=== PATIENT | male | born 1960 | race African-American/Black ===

== ENCOUNTER 2016-12-18 22:54 | Inpatient (IN) | payer MEDICAID ==
[~2016-12-18] VITALS: Ht 160 cm; Wt 71.7 kg
[~2016-12-18 22:54] MED LIST: COR12 PO; FURO40TA5 PO; KDUR10 PO; LIP40 PO; LISI10TA5 PO
[2016-12-18] MEDS ORDERED: ASPIRIN 81MG TABLET PO STA (23:22)
[2016-12-18] MEDS ORDERED: NITROGLYCERIN 0.4MG TABLET SL SL PRN (23:30)
[2016-12-18 23:40] LABS: BASOPHILS % 1.1 % (0.0-2.0); EOSINOPHILS % 1.4 % (0.0-5.0); HEMATOCRIT. 37.2 % (42.0-52.0); HEMOGLOBIN. 12.4 g/dL (14.0-18.0); LYMPHOCYTES % 30.1 % (20.0-50.0); MEAN CORPUSCULAR HEMOGLOBIN 26.8 pg (28.0-32.0); MEAN CORPUSCULAR VOLUME 80.4 fL (80.0-94.0); MEAN PLATELET VOLUME 7.8 fl (7.4-10.4); NEUTROPHILS % 60.4 % (40.0-76.0); PLATELET 283 x1000/uL (130-400); RED BLOOD CELL COUNT 4.62 mill/uL (4.7-6.1)
[2016-12-18 23:50] LABS: PARTIAL THROMBOPLASTIN TIME 25.2 sec (24.0-34.0); PROTHROMBIN TIME 10.5 sec
[2016-12-18 23:56] LABS: CARBON DIOXIDE 28 mEq/L (21-32); CHLORIDE 104 mEq/L (98-107); TROPONIN I 0.09 ng/mL (0.00-0.04)
[2016-12-19] MEDS ORDERED: LORAZEPAM 2MG/ML CPJ IV PRN (02:00)
[2016-12-19] MEDS ORDERED: ACETAMINOPHEN 325MG TABLET PO PRN (02:00)
[2016-12-19] MEDS ORDERED: NA PHOS,M-B/NA PHOS,DI-BA ENEMA 118ML PR PRN (02:00)
[2016-12-19] MEDS ORDERED: ONDANSETRON HCL 4MG/2ML VIAL IV PRN (02:00)
[2016-12-19] MEDS ORDERED: GUAIFENESIN 200MG/10ML SUGAR FREE UDC PO PRN (02:00)
[2016-12-19] MEDS ORDERED: DIPHENHYDRAMINE 50MG/ML VIAL IV PRN (02:00)
[2016-12-19] MEDS ORDERED: HYDROMORPHONE HCL/PF 2MG/ML CPJ IV PRN (02:00)
[2016-12-19] MEDS ORDERED: DOCUSATE SODIUM 100MG CAPSULE PO PRN (02:00)
[2016-12-19] MEDS ORDERED: IPRATROPIUM/ALBUTEROL 0.5-3(2.5)MG/3ML NEB INH PRN (02:00)
[2016-12-19] MEDS ORDERED: HYDROCODONE/ACETAMINOPHEN 5/325MG TABLET PO PRN (02:00)
[2016-12-19] MEDS ORDERED: MAGNESIUM/ALUMINUM HYDROXIDE/SIMETHICONE 30ML UDC PO PRN (02:00)
[2016-12-19 02:24] LABS: CARBON DIOXIDE 27 mEq/L (21-32); CHLORIDE 105 mEq/L (98-107)
[2016-12-19] MEDS ORDERED: ENOXAPARIN 40MG/0.4ML SYR SUBCUT NR (02:38)
[2016-12-19] MEDS: CLONIDINE 0.1MG TABLET PO PRN ×2 (08:22→20:13)
[2016-12-19 08:40] VITALS: BP 155/99
[2016-12-19] MEDS ORDERED: ASPIRIN 81MG EC TABLET PO SCH (09:00)
[2016-12-19] MEDS: INSULIN LISPRO 100 UNITS/ML SUBCUT SCH ×4 (09:00→20:17)
[2016-12-19] MEDS ORDERED: DEXTROSE 50% WATER 50ML SYRINGE IV PRN (09:00)
[2016-12-19] MEDS: BLOOD SUGAR DIAGNOSTIC STRIP TEST SCH ×4 (09:49→20:17)
[2016-12-19 12:00] VITALS: BP 142/94
[2016-12-19 16:00] VITALS: BP 127/84
[2016-12-19 19:53] VITALS: BP 155/97
[2016-12-19 23:49] VITALS: BP 131/88
[2016-12-20] VITALS (39 sets, daily range): BP systolic 125–179; BP diastolic 62–107
[2016-12-20] MEDS: BLOOD SUGAR DIAGNOSTIC STRIP TEST SCH ×4 (05:47→21:00)
[2016-12-20 06:16] LABS: EOSINOPHILS % 1.9 % (0.0-5.0); HEMATOCRIT. 39.4 % (42.0-52.0); HEMOGLOBIN. 13.1 g/dL (14.0-18.0); LYMPHOCYTES % 42.6 % (20.0-50.0); MEAN CORPUSCULAR HEMOGLOBIN 26.9 pg (28.0-32.0); MEAN CORPUSCULAR VOLUME 80.7 fL (80.0-94.0); MEAN PLATELET VOLUME 8.1 fl (7.4-10.4); MONOCYTES % 9.2 % (2.0-8.0); NEUTROPHILS % 45.3 % (40.0-76.0); PLATELET 282 x1000/uL (130-400); RED BLOOD CELL COUNT 4.89 mill/uL (4.7-6.1); RED CELL DISTRIBUTION WIDTH 17.2 % (11.6-14.6)
[2016-12-20] MEDS: INSULIN LISPRO 100 UNITS/ML SUBCUT SCH ×4 (06:31→21:14)
[2016-12-20] MEDS ORDERED: REGADENOSON 0.4 MG/5 ML IV ONE (06:45)
[2016-12-20 06:48] LABS: CHLORIDE 104 mEq/L (98-107)
[2016-12-20 06:56] LABS: CARBON DIOXIDE 26 mEq/L (21-32); HDL CHOLESTEROL 52 mg/dL (40-59); LDL CHOLESTEROL 115 mg/dL (5-100); T4 FREE 1.06 ng/dL (0.76-1.46)
[2016-12-20] MEDS ORDERED: LIDOCAINE HCL 1% 20ML VIAL (Pyxis) INJ ONE (07:56)
[2016-12-20] MEDS ORDERED: IOHEXOL-300 100 ML BOTTLE ONE (07:56)
[2016-12-20] MEDS ORDERED: MIDAZOLAM HCL 2 MG/2 ML VIAL ONE ×2 (08:06→08:39)
[2016-12-20] MEDS ORDERED: FENTANYL CITRATE/PF 50MCG/ML 2ML VIAL ONE (08:06)
[2016-12-20] MEDS: ASPIRIN 81MG TABLET PO SCH (08:11)
[2016-12-20] MEDS: CLOPIDOGREL 75MG TABLET PO SCH (08:11)
[2016-12-20] MEDS ORDERED: ACETAMINOPHEN 325MG TABLET PO PRN (09:00)
[2016-12-20] MEDS ORDERED: ATROPINE SULFATE 1MG/10ML SYR IV PRN (09:00)
[2016-12-20] MEDS ORDERED: ENOXAPARIN 40MG/0.4ML SYR SUBCUT SCH (09:00)
[2016-12-20] MEDS: CLONIDINE 0.1MG TABLET PO PRN ×2 (16:01→21:11)
[2016-12-20 16:05] LABS: CREATINE KINASE MB FRACTION 1.5 ng/mL (0.5-3.6); TROPONIN I 0.08 ng/mL (0.00-0.04)
[2016-12-20] MEDS ORDERED: ATORVASTATIN CALCIUM 20MG TABLET PO SCH (21:00)
[2016-12-21] VITALS: BP 137/56
[2016-12-21 00:03] LABS: CREATINE KINASE MB FRACTION 1.4 ng/mL (0.5-3.6); TROPONIN I 0.08 ng/mL (0.00-0.04)
[2016-12-21 06:00] VITALS: BP 136/56
[2016-12-21 06:37] LABS: BASOPHILS % 1.1 % (0.0-2.0); EOSINOPHILS % 2.2 % (0.0-5.0); HEMATOCRIT. 39.4 % (42.0-52.0); HEMOGLOBIN. 13.2 g/dL (14.0-18.0); LYMPHOCYTES % 34.2 % (20.0-50.0); MEAN CORPUSCULAR HEMOGLOBIN 26.8 pg (28.0-32.0); MEAN CORPUSCULAR VOLUME 80.3 fL (80.0-94.0); MEAN PLATELET VOLUME 8.3 fl (7.4-10.4); NEUTROPHILS % 52.5 % (40.0-76.0); PLATELET 261 x1000/uL (130-400); RED BLOOD CELL COUNT 4.91 mill/uL (4.7-6.1); RED CELL DISTRIBUTION WIDTH 17.1 % (11.6-14.6)
[2016-12-21] MEDS: BLOOD SUGAR DIAGNOSTIC STRIP TEST SCH (06:50)
[2016-12-21] MEDS: INSULIN LISPRO 100 UNITS/ML SUBCUT SCH (07:20)
[2016-12-21 07:23] LABS: CARBON DIOXIDE 27 mEq/L (21-32); CHLORIDE 105 mEq/L (98-107); CREATINE KINASE 189 IU/L (39-308)
[2016-12-21 07:24] LABS: CREATINE KINASE MB FRACTION 0.5 ng/mL (0.5-3.6); TROPONIN I 0.07 ng/mL (0.00-0.04)
[2016-12-21 08:00] VITALS: BP 139/54
[2016-12-21] MEDS: ASPIRIN 81MG TABLET PO SCH (08:28)
[2016-12-21] MEDS: CLOPIDOGREL 75MG TABLET PO SCH (08:28)
[2016-12-21 09:21] VITALS: BP 156/92
[2016-12-21 10:00] VITALS: BP 156/92
[2016-12-21] MEDS ORDERED: LOSARTAN POTASSIUM 25 MG TABLET PO SCH (11:00)
[2016-12-21] MEDS ORDERED: CARVEDILOL 3.125 MG TABLET PO SCH (11:00)
== END 2016-12-21 11:09 | disposition home or self-care (01) | DRG 192 ==
LOC: ER 22:55 → 5WST 12-19 02:11 → 3WST 12-20 09:16
PROVIDERS: ADMIT Internal Medicine; ATTEND Internal Medicine
PROC: 4A023N7 Measurement of Cardiac Sampling and Pressure, Left Heart, Percutaneous Approach (ICD-10-PCS; principal; 2016-12-20)
PROC: B2111ZZ Fluoroscopy of Multiple Coronary Arteries using Low Osmolar Contrast (ICD-10-PCS; 2016-12-20)
DX: I25.111 Atherosclerotic heart disease of native coronary artery with angina pectoris with documented spasm (principal); E87.8 Other disorders of electrolyte and fluid balance, not elsewhere classified; M94.0 Chondrocostal junction syndrome [Tietze]; I10 Essential (primary) hypertension; R09.1 Pleurisy; E11.9 Type 2 diabetes mellitus without complications; E78.5 Hyperlipidemia, unspecified; F17.200 Nicotine dependence, unspecified, uncomplicated; K21.9 Gastro-esophageal reflux disease without esophagitis; Z86.73 Personal history of transient ischemic attack (TIA), and cerebral infarction without residual deficits; Z95.5 Presence of coronary angioplasty implant and graft
CPT/HCPCS: 36415; 71010; 80048; 80053; 80061; 82550; 82553; 82962; 83036; 83690; 83880; 84439; 84443; 84484; 85025; 85379; 85610; 85730; 93005; 93306; 93458; 93970; 96372; 99285; C1760; C1769; C1887; C1893; J1170; J1644; J1650; J1815; J2250; J3010; J3490; Q9967

== ENCOUNTER 2017-01-20 03:35 | Inpatient (IN) | payer MEDICAID ==
[~2017-01-20] VITALS: Ht 160 cm; Wt 68.0 kg
[2017-01-20] MEDS ORDERED: MORPHINE SULFATE 4 MG/ML CPJ (NOT FOR IM USE) IV STA (06:22)
[2017-01-20] MEDS ORDERED: ASPIRIN 81MG TABLET PO ONE (06:30)
[2017-01-20 06:48] LABS: BASOPHILS % 0.3 % (0.0-2.0); HEMATOCRIT. 35.9 % (42.0-52.0); HEMOGLOBIN. 11.9 g/dL (14.0-18.0); LYMPHOCYTES % 31.1 % (20.0-50.0); MEAN CORPUSCULAR HEMOGLOBIN 26.4 pg (28.0-32.0); MEAN CORPUSCULAR VOLUME 79.8 fL (80.0-94.0); MEAN PLATELET VOLUME 7.8 fl (7.4-10.4); MONOCYTES % 8.2 % (2.0-8.0); NEUTROPHILS % 58.4 % (40.0-76.0); PLATELET 312 x1000/uL (130-400)
[2017-01-20 06:52] LABS: PROTHROMBIN TIME 10.1 sec
[2017-01-20 07:02] LABS: CARBON DIOXIDE 28 mEq/L (21-32); CHLORIDE 103 mEq/L (98-107); TROPONIN I 0.21 ng/mL (0.00-0.04)
[2017-01-20 09:30] VITALS: BP 158/98
[2017-01-20] MEDS: AMLODIPINE 10MG TABLET PO NR ×2 (11:32→11:34)
[2017-01-20 12:00] VITALS: BP_SYST 150; BP_SYST 158; BP_DIAS 98
[2017-01-20] MEDS ORDERED: GUAIFENESIN 200MG/10ML SUGAR FREE UDC PO PRN (12:00)
[2017-01-20] MEDS ORDERED: DOCUSATE SODIUM 100MG CAPSULE PO PRN (12:00)
[2017-01-20] MEDS ORDERED: CLONIDINE 0.1MG TABLET PO PRN (12:00)
[2017-01-20] MEDS ORDERED: ONDANSETRON HCL 4MG/2ML VIAL IV PRN (12:00)
[2017-01-20] MEDS ORDERED: HYDROCODONE/ACETAMINOPHEN 5/325MG TABLET PO PRN (12:00)
[2017-01-20] MEDS ORDERED: ACETAMINOPHEN 325MG TABLET PO PRN (12:00)
[2017-01-20] MEDS ORDERED: DIPHENHYDRAMINE 50MG/ML VIAL IV PRN (12:00)
[2017-01-20] MEDS ORDERED: NITROGLYCERIN 0.1MG/HR PATCH TOP SCH (12:30)
[2017-01-20] MEDS: LISINOPRIL 10MG TABLET PO SCH (12:38)
[2017-01-20] MEDS ORDERED: NITROGLYCERIN OINT 1GM/INCH UDPKT TD PRN (13:15)
[2017-01-20] MEDS: MORPHINE SULFATE 4 MG/ML CPJ (NOT FOR IM USE) IV PRN ×2 (13:51→18:06)
[2017-01-20] MEDS: METOPROLOL TARTRATE 25MG TABLET PO SCH ×2 (13:52→20:56)
[2017-01-20] MEDS: ENOXAPARIN 40MG/0.4ML SYR SUBCUT SCH (13:58)
[2017-01-20] MEDS ORDERED: NITROGLYCERIN 0.1MG/HR PATCH TOP PRN (14:00)
[2017-01-20 16:00] VITALS: BP 139/88
[2017-01-20 16:35] LABS: CREATINE KINASE MB FRACTION 1.9 ng/mL (0.5-3.6); TROPONIN I 0.17 ng/mL (0.00-0.04)
[2017-01-20 20:00] VITALS: BP 131/80
[2017-01-20] MEDS: AMLODIPINE 5MG TABLET PO SCH (20:59)
[2017-01-20] MEDS ORDERED: ATORVASTATIN CALCIUM 40MG TABLET PO SCH (21:00)
[2017-01-20 23:47] LABS: TROPONIN I 0.17 ng/mL (0.00-0.04)
[2017-01-20 23:48] LABS: CREATINE KINASE MB FRACTION 1.3 ng/mL (0.5-3.6)
[2017-01-21] VITALS: BP 132/71
[2017-01-21 04:00] VITALS: BP 124/77
[2017-01-21 06:00] LABS: CHLORIDE 105 mEq/L (98-107)
[2017-01-21 06:10] LABS: CARBON DIOXIDE 25 mEq/L (21-32); HDL CHOLESTEROL 54 mg/dL (40-59); LDL CHOLESTEROL 130 mg/dL (5-100)
[2017-01-21 07:59] LABS: EOSINOPHILS % 2.7 % (0.0-5.0); HEMATOCRIT. 40.5 % (42.0-52.0); HEMOGLOBIN. 13.1 g/dL (14.0-18.0); LYMPHOCYTES % 37.3 % (20.0-50.0); MEAN CORPUSCULAR HEMOGLOBIN 26.8 pg (28.0-32.0); MEAN CORPUSCULAR VOLUME 83.1 fL (80.0-94.0); MEAN PLATELET VOLUME 8.2 fl (7.4-10.4); MONOCYTES % 8.5 % (2.0-8.0); NEUTROPHILS % 50.5 % (40.0-76.0); PLATELET 317 x1000/uL (130-400); RED BLOOD CELL COUNT 4.87 mill/uL (4.7-6.1); RED CELL DISTRIBUTION WIDTH 16.3 % (11.6-14.6)
[2017-01-21 08:00] VITALS: BP 144/90
[2017-01-21] MEDS: LISINOPRIL 10MG TABLET PO SCH (08:56)
[2017-01-21] MEDS ORDERED: ASPIRIN 81MG EC TABLET PO SCH (09:00)
[2017-01-21] MEDS: METOPROLOL TARTRATE 25MG TABLET PO SCH (10:57)
[2017-01-21] MEDS: AMLODIPINE 5MG TABLET PO SCH (10:57)
[2017-01-21 12:00] VITALS: BP 137/75
[2017-01-21 12:29] LABS: *AMPHETAMINES SCREEN URINE NEGATIVE (NEGATIVE); *BARBITURATES SCREEN URINE NEGATIVE (NEGATIVE); *BENZODIAZEPINES SCREEN URINE NEGATIVE (NEGATIVE); *COCAINE SCREEN URINE NEGATIVE (NEGATIVE); CANNABINOID URINE SCREEN PRESUMTIVE POSITIVE (NEGATIVE); METHADONE URINE SCREEN NEGATIVE (NEGATIVE); OPIATES URINE SCREEN PRESUMTIVE POSITIVE (NEGATIVE); PHENCYCLIDINE URINE SCREEN NEGATIVE (NEGATIVE)
[2017-01-21] MEDS: ENOXAPARIN 40MG/0.4ML SYR SUBCUT SCH (12:37)
[2017-01-21 12:43] VITALS: BP 137/75
== END 2017-01-21 13:15 | disposition home or self-care (01) | DRG 198 ==
LOC: ER 03:36 → 5WST 08:25 → EDBEDREQ 08:28 → ER 08:34 → ENRESERV 09:23
PROVIDERS: ADMIT Hospitalist; ATTEND Hospitalist
DX: I24.9 Acute ischemic heart disease, unspecified (principal); I11.0 Hypertensive heart disease with heart failure; I25.82 Chronic total occlusion of coronary artery; I50.32 Chronic diastolic (congestive) heart failure; E11.9 Type 2 diabetes mellitus without complications; E78.5 Hyperlipidemia, unspecified; F14.90 Cocaine use, unspecified, uncomplicated; F12.90 Cannabis use, unspecified, uncomplicated; F17.210 Nicotine dependence, cigarettes, uncomplicated; I25.10 Atherosclerotic heart disease of native coronary artery without angina pectoris; Z86.73 Personal history of transient ischemic attack (TIA), and cerebral infarction without residual deficits; Z95.5 Presence of coronary angioplasty implant and graft
CPT/HCPCS: 36415; 71010; 80048; 80053; 80061; 80305; 82550; 82553; 82962; 83735; 83880; 84484; 85025; 85610; 93005; 93306; 93970; 96374; 99285; J1650; J2270

== ENCOUNTER 2017-05-09 23:54 | Inpatient (IN) | payer MEDICAID ==
[~2017-05-09] VITALS: Ht 160 cm; Wt 68.0 kg
[2017-05-10] MEDS ORDERED: FENTANYL CITRATE/PF 50MCG/ML 2ML VIAL IV ONE (00:45)
[2017-05-10] MEDS ORDERED: SODIUM CHLORIDE 0.9% 1,000 ML IV ONE (00:45)
[2017-05-10] MEDS ORDERED: ASPIRIN 81MG TABLET PO ONE (00:45)
[2017-05-10 01:18] LABS: HEMATOCRIT. 37.3 % (42.0-52.0); HEMOGLOBIN. 12.6 g/dL (14.0-18.0); MEAN CORPUSCULAR HEMOGLOBIN 27.2 pg (28.0-32.0); MEAN CORPUSCULAR VOLUME 80.6 fL (80.0-94.0); MEAN PLATELET VOLUME 7.9 fl (7.4-10.4); PLATELET 270 x1000/uL (130-400); RED BLOOD CELL COUNT 4.63 mill/uL (4.7-6.1); RED CELL DISTRIBUTION WIDTH 17.2 % (11.6-14.6)
[2017-05-10 01:27] LABS: D-DIMER 0.41 mg/L FEU (<0.50); PROTHROMBIN TIME 10.4 sec (9.4-11.6)
[2017-05-10 01:43] LABS: CARBON DIOXIDE 27 mEq/L (21-32); CHLORIDE 107 mEq/L (98-107); ETHANOL BLOOD < 10 mg/dL; TROPONIN I 0.06 ng/mL (0.00-0.04)
[2017-05-10 01:45] LABS: PLATELET ESTIMATE NORMAL
[2017-05-10] MEDS ORDERED: HYDRALAZINE 20MG/ML VIAL IV SCH (01:45)
[2017-05-10 08:31] VITALS: BP 146/81
[2017-05-10] MEDS ORDERED: DEXTROSE 50% WATER 50ML SYRINGE IV PRN (09:30)
[2017-05-10] MEDS ORDERED: LISINOPRIL 20MG TABLET PO SCH (09:30)
[2017-05-10] MEDS ORDERED: MORPHINE SULFATE 2 MG/ML CPJ (NOT FOR IM USE) IV PRN (09:30)
[2017-05-10] MEDS: CARVEDILOL 12.5MG TABLET PO SCH ×2 (10:24→20:59)
[2017-05-10] MEDS: POTASSIUM CHLORIDE 10MEQ TABLET SR PO SCH (10:25)
[2017-05-10 11:04] VITALS: BP 145/90
[2017-05-10] MEDS ORDERED: ACETAMINOPHEN 325MG TABLET PO PRN (11:15)
[2017-05-10] MEDS ORDERED: CLONIDINE 0.1MG TABLET PO PRN (11:15)
[2017-05-10] MEDS ORDERED: IPRATROPIUM/ALBUTEROL 0.5-3(2.5)MG/3ML NEB INH PRN (11:15)
[2017-05-10] MEDS ORDERED: ONDANSETRON HCL 4MG/2ML VIAL IV PRN (11:15)
[2017-05-10] MEDS ORDERED: MAGNESIUM/ALUMINUM HYDROXIDE/SIMETHICONE 30ML UDC PO PRN (11:15)
[2017-05-10] MEDS ORDERED: DOCUSATE SODIUM 100MG CAPSULE PO PRN (11:15)
[2017-05-10 12:00] VITALS: BP 154/84
[2017-05-10] MEDS ORDERED: ENOXAPARIN 40MG/0.4ML SYR SUBCUT SCH (12:00)
[2017-05-10] MEDS: BLOOD SUGAR DIAGNOSTIC STRIP TEST SCH ×3 (12:40→21:02)
[2017-05-10] MEDS: INSULIN LISPRO 100 UNITS/ML SUBCUT SCH ×3 (13:00→21:25)
[2017-05-10] MEDS: NITROGLYCERIN OINT 1GM/INCH UDPKT TD SCH ×2 (15:30→23:30)
[2017-05-10 16:00] VITALS: BP 154/94
[2017-05-10 16:50] LABS: CLARITY URINE CLEAR (CLEAR); COLOR URINE YELLOW (YELLOW); GLUCOSE URINE NEGATIVE (NEGATIVE); KETONES URINE NEGATIVE (NEGATIVE); LEUKOCYTE ESTERASE URINE NEGATIVE (NEGATIVE); NITRITE URINE NEGATIVE (NEGATIVE); OCCULT BLOOD URINE NEGATIVE (NEGATIVE); PH URINE 8.5 (4.5-8.0); PROTEIN URINE NEGATIVE (NEGATIVE); SPECIFIC GRAVITY URINE 1.018 (1.005-1.030)
[2017-05-10 17:02] LABS: *AMPHETAMINES SCREEN URINE NEGATIVE (NEGATIVE); *BARBITURATES SCREEN URINE NEGATIVE (NEGATIVE); *BENZODIAZEPINES SCREEN URINE NEGATIVE (NEGATIVE); *COCAINE SCREEN URINE PRESUMTIVE POSITIVE (NEGATIVE); CANNABINOID URINE SCREEN PRESUMTIVE POSITIVE (NEGATIVE); METHADONE URINE SCREEN NEGATIVE (NEGATIVE); OPIATES URINE SCREEN NEGATIVE (NEGATIVE); PHENCYCLIDINE URINE SCREEN NEGATIVE (NEGATIVE)
[2017-05-10 20:36] VITALS: BP 144/76
[2017-05-10] MEDS: AMLODIPINE 5MG TABLET PO SCH (20:52)
[2017-05-10] MEDS: LISINOPRIL 20MG TABLET PO SCH (20:59)
[2017-05-10] MEDS ORDERED: ZOLPIDEM TARTRATE 5MG TABLET PO PRN (21:00)
[2017-05-10] MEDS ORDERED: ATORVASTATIN CALCIUM 40MG TABLET PO SCH (21:00)
[2017-05-11] VITALS: BP 124/63
[2017-05-11 04:00] VITALS: BP 124/64
[2017-05-11] MEDS: NITROGLYCERIN OINT 1GM/INCH UDPKT TD SCH (06:20)
[2017-05-11] MEDS: BLOOD SUGAR DIAGNOSTIC STRIP TEST SCH (06:30)
[2017-05-11 06:40] LABS: BASOPHILS % 1.1 % (0.0-2.0); EOSINOPHILS % 2.8 % (0.0-5.0); HEMATOCRIT. 39.3 % (42.0-52.0); LYMPHOCYTES % 40.9 % (20.0-50.0); MEAN CORPUSCULAR VOLUME 81.3 fL (80.0-94.0); MEAN PLATELET VOLUME 8.7 fl (7.4-10.4); MONOCYTES % 7.8 % (2.0-8.0); NEUTROPHILS % 47.4 % (40.0-76.0); PLATELET 217 x1000/uL (130-400); RED BLOOD CELL COUNT 4.83 mill/uL (4.7-6.1); RED CELL DISTRIBUTION WIDTH 17.4 % (11.6-14.6)
[2017-05-11] MEDS ORDERED: OMEPRAZOLE 20MG CAPSULE EXTENDED RELEASE PO SCH (07:40)
[2017-05-11 07:41] LABS: CARBON DIOXIDE 24 mEq/L (21-32); CHLORIDE 108 mEq/L (98-107)
[2017-05-11 08:00] VITALS: BP 145/91
[2017-05-11] MEDS: INSULIN LISPRO 100 UNITS/ML SUBCUT SCH (08:10)
[2017-05-11] MEDS: LISINOPRIL 20MG TABLET PO SCH (08:37)
[2017-05-11] MEDS: POTASSIUM CHLORIDE 10MEQ TABLET SR PO SCH (08:37)
[2017-05-11] MEDS: CARVEDILOL 12.5MG TABLET PO SCH (08:37)
[2017-05-11] MEDS: AMLODIPINE 5MG TABLET PO SCH (08:38)
[2017-05-11] MEDS ORDERED: FUROSEMIDE 40MG TABLET PO SCH (09:00)
[2017-05-11] MEDS ORDERED: ASPIRIN 81MG EC TABLET PO SCH (09:00)
== END 2017-05-11 11:50 | disposition home or self-care (01) | DRG 199 ==
LOC: ER 23:54 → 7WST 05-10 01:46 → ENRESERV 05-10 05:04
PROVIDERS: ADMIT Family Medicine Adult Medicine; ATTEND Family Medicine Adult Medicine
DX: I16.0 Hypertensive urgency (principal); I11.9 Hypertensive heart disease without heart failure; E44.1 Mild protein-calorie malnutrition; I69.351 Hemiplegia and hemiparesis following cerebral infarction affecting right dominant side; E11.9 Type 2 diabetes mellitus without complications; D50.9 Iron deficiency anemia, unspecified; I25.2 Old myocardial infarction; E78.5 Hyperlipidemia, unspecified; I25.10 Atherosclerotic heart disease of native coronary artery without angina pectoris; F12.90 Cannabis use, unspecified, uncomplicated; Z82.49 Family history of ischemic heart disease and other diseases of the circulatory system; Z83.3 Family history of diabetes mellitus; Z91.14 Patient's other noncompliance with medication regimen; Z95.5 Presence of coronary angioplasty implant and graft; Z79.899 Other long term (current) drug therapy; Z72.89 Other problems related to lifestyle; Z68.26 Body mass index [BMI] 26.0-26.9, adult; M94.0 Chondrocostal junction syndrome [Tietze]
CPT/HCPCS: 36415; 71010; 80048; 80053; 80305; 81003; 82962; 83690; 83721; 83735; 83880; 84484; 85025; 85379; 85610; 93005; 96361; 96374; 96375; 99285; G0482; J0360; J1650; J1815; J3010; J7030

== ENCOUNTER 2017-08-09 23:33 | Inpatient (IN) | payer MEDICAID ==
[~2017-08-09] VITALS: Ht 160 cm; Wt 68.0 kg
[2017-08-10] MEDS ORDERED: ONDANSETRON HCL 4MG/2ML VIAL IV STA (01:25)
[2017-08-10] MEDS ORDERED: MORPHINE SULFATE 4 MG/ML CPJ (NOT FOR IM USE) IV STA (01:25)
[2017-08-10] MEDS ORDERED: NITROGLYCERIN OINT 1GM/INCH UDPKT TD ONE (01:30)
[2017-08-10] MEDS ORDERED: ENALAPRIL 2.5MG/2ML VIAL 2ML IV ONE (01:30)
[2017-08-10] MEDS ORDERED: ASPIRIN 81MG TABLET PO ONE (01:30)
[2017-08-10 01:41] LABS: BASOPHILS % 0.9 % (0.0-2.0); EOSINOPHILS % 2.3 % (0.0-5.0); HEMATOCRIT. 35.2 % (42.0-52.0); HEMOGLOBIN. 11.5 g/dL (14.0-18.0); LYMPHOCYTES % 37.9 % (20.0-50.0); MEAN CORPUSCULAR HEMOGLOBIN 27.3 pg (28.0-32.0); MEAN CORPUSCULAR VOLUME 83.4 fL (80.0-94.0); MEAN PLATELET VOLUME 7.8 fl (7.4-10.4); MONOCYTES % 9.5 % (2.0-8.0); NEUTROPHILS % 49.4 % (40.0-76.0); PLATELET 268 x1000/uL (130-400); RED BLOOD CELL COUNT 4.23 mill/uL (4.7-6.1); RED CELL DISTRIBUTION WIDTH 15.9 % (11.6-14.6)
[2017-08-10 01:59] LABS: CHLORIDE 106 mEq/L (98-107); TROPONIN I 0.35 ng/mL (0.00-0.04)
[2017-08-10] MEDS ORDERED: ONDANSETRON HCL 4MG/2ML VIAL IV PRN (06:00)
[2017-08-10] MEDS ORDERED: DIPHENHYDRAMINE 50MG/ML VIAL IV PRN (06:00)
[2017-08-10] MEDS ORDERED: MAGNESIUM/ALUMINUM HYDROXIDE/SIMETHICONE 30ML UDC PO PRN (06:00)
[2017-08-10] MEDS ORDERED: KETOROLAC 30MG/ML VIAL IV PRN (06:00)
[2017-08-10] MEDS ORDERED: CLONIDINE 0.1MG TABLET PO PRN (06:00)
[2017-08-10 08:00] VITALS: BP 147/80
[2017-08-10 08:30] VITALS: BP 147/80
[2017-08-10] MEDS ORDERED: ATENOLOL 50 MG TABLET PO NR (09:00)
[2017-08-10] MEDS: ASPIRIN 81MG EC TABLET PO SCH (10:25)
[2017-08-10] MEDS: LOSARTAN POTASSIUM 50 MG TABLET PO SCH (10:25)
[2017-08-10] MEDS: AMLODIPINE 10MG TABLET PO SCH (10:25)
[2017-08-10 12:00] VITALS: BP 128/77
[2017-08-10] MEDS ORDERED: INFLUENZA VIRUS VACCINE 0.5ML SYR IM ONE (13:15)
[2017-08-10] MEDS ORDERED: PNEUMOCOCCAL 23-VAL P-SAC VAC 0.5 ML IM ONE (13:15)
[2017-08-10] MEDS ORDERED: DEXTROSE 50% WATER 50ML SYRINGE IV PRN (13:30)
[2017-08-10] MEDS: SODIUM CHLORIDE 0.9% INJ 3ML FLUSH IVF SCH ×2 (15:56→21:51)
[2017-08-10 16:00] VITALS: BP 135/75
[2017-08-10] MEDS: BLOOD SUGAR DIAGNOSTIC STRIP TEST SCH ×2 (17:43→21:50)
[2017-08-10] MEDS: INSULIN LISPRO 100 UNITS/ML SUBCUT SCH ×2 (17:45→21:00)
[2017-08-10] MEDS: METFORMIN HCL 500MG TABLET PO SCH (17:45)
[2017-08-10 20:26] VITALS: BP 134/79
[2017-08-10] MEDS: ATORVASTATIN CALCIUM 40MG TABLET PO SCH (21:48)
[2017-08-11 00:25] VITALS: BP 127/77
[2017-08-11 04:00] VITALS: BP 157/84
[2017-08-11] MEDS: SODIUM CHLORIDE 0.9% INJ 3ML FLUSH IVF SCH ×3 (06:04→21:28)
[2017-08-11] MEDS: BLOOD SUGAR DIAGNOSTIC STRIP TEST SCH ×4 (07:10→21:23)
[2017-08-11] MEDS: INSULIN LISPRO 100 UNITS/ML SUBCUT SCH ×4 (07:40→21:26)
[2017-08-11 08:00] VITALS: BP 146/91
[2017-08-11] MEDS: AMLODIPINE 10MG TABLET PO SCH (08:12)
[2017-08-11] MEDS: LOSARTAN POTASSIUM 50 MG TABLET PO SCH (08:12)
[2017-08-11] MEDS: ASPIRIN 81MG EC TABLET PO SCH (08:12)
[2017-08-11] MEDS: ACETAMINOPHEN 325MG TABLET PO PRN ×2 (08:13→18:06)
[2017-08-11] MEDS: METFORMIN HCL 500MG TABLET PO SCH ×2 (11:00→16:59)
[2017-08-11 12:00] VITALS: BP 143/86
[2017-08-11 16:00] VITALS: BP 146/86
[2017-08-11 20:00] VITALS: BP 147/85
[2017-08-11] MEDS: ATORVASTATIN CALCIUM 40MG TABLET PO SCH (21:23)
[2017-08-12] VITALS: BP 151/87
[2017-08-12 03:51] VITALS: BP 148/87
[2017-08-12] MEDS: BLOOD SUGAR DIAGNOSTIC STRIP TEST SCH ×2 (06:14→12:10)
[2017-08-12] MEDS: INSULIN LISPRO 100 UNITS/ML SUBCUT SCH ×2 (06:15→12:40)
[2017-08-12] MEDS: SODIUM CHLORIDE 0.9% INJ 3ML FLUSH IVF SCH ×2 (06:38→13:14)
[2017-08-12 08:00] VITALS: BP_SYST 130; BP_SYST 136; BP_DIAS 84; BP_DIAS 88
[2017-08-12] MEDS: METFORMIN HCL 500MG TABLET PO SCH (08:37)
[2017-08-12] MEDS: LOSARTAN POTASSIUM 50 MG TABLET PO SCH (08:38)
[2017-08-12] MEDS: ASPIRIN 81MG EC TABLET PO SCH (08:38)
[2017-08-12] MEDS: AMLODIPINE 10MG TABLET PO SCH (08:38)
[2017-08-12 13:35] VITALS: BP 130/74
== END 2017-08-12 13:35 | disposition home or self-care (01) | DRG 816 ==
LOC: ER 23:33 → 8WST 08-10 03:48 → EDBEDREQ 08-10 04:01 → EDBEDREQTM 08-10 04:01 → ENRESERV 08-10 07:42
PROVIDERS: ADMIT Internal Medicine; ATTEND Internal Medicine
DX: T40.5X1A Poisoning by cocaine, accidental (unintentional), initial encounter (principal); I11.9 Hypertensive heart disease without heart failure; E44.1 Mild protein-calorie malnutrition; I25.9 Chronic ischemic heart disease, unspecified; J06.9 Acute upper respiratory infection, unspecified; I25.10 Atherosclerotic heart disease of native coronary artery without angina pectoris; R07.89 Other chest pain; I25.2 Old myocardial infarction; E78.5 Hyperlipidemia, unspecified; E11.9 Type 2 diabetes mellitus without complications; E78.00 Pure hypercholesterolemia, unspecified; Z60.2 Problems related to living alone; F19.10 Other psychoactive substance abuse, uncomplicated; F17.200 Nicotine dependence, unspecified, uncomplicated; Z86.73 Personal history of transient ischemic attack (TIA), and cerebral infarction without residual deficits; Z91.14 Patient's other noncompliance with medication regimen; Z95.1 Presence of aortocoronary bypass graft; Z79.899 Other long term (current) drug therapy; Z98.61 Coronary angioplasty status
CPT/HCPCS: 36415; 71045; 80053; 82962; 83880; 84484; 85025; 87804; 90686; 90732; 93005; 96374; 96375; 99285; 99406; C1893; J1815; J1885; J2270; J2405; J3490